=== PATIENT | female | born 1990 | race American Indian/Alaskan Native ===

== ENCOUNTER 2017-11-30 17:34 | Emergency (ER) | payer SELFPAY ==
[2017-11-30 17:50] VITALS: BP 108/49
--- NOTE | 2017-11-30 18:55 | Emergency Department Report ---
ED Female HPI - General Chief complaint: Urogenital-Female Stated complaint: ABD PAIN AND URINARY PAIN Time Seen by Provider: 11/30/17 18:48 Source: patient Mode of arrival: Ambulatory Limitations: Physical Limitation - History of Present Illness Initial comments: 27-year-old female past medical history right foot fracture currently in a cast , history of CHF, control implant left arm placed June 2016 presents with complaint of 6 days of increased urinary frequency and slight dysuria. Patient complaining of intermittent burning with urination. Also states that her last menstrual period began November 16 2017 and she has been bleeding persistently since then. Denies any chest pain shortness of breath or palpitations. Patient is awake alert and oriented 3. Denies fevers or chills or flank pain. Denies nausea or vomiting. MD Complaint: vaginal bleeding Onset/Timin -: days(s) Location: suprapubic Worsens with: urination Are you Now?: No Last Menstrual Period: 11/16/17 EDC: 08/23/18 Associated Symptoms: vaginal bleeding, dysuria - Related Data Sexually active: No Previous Rx's Medication Instructions Recorded Last Taken Type Nitrofurantoin [place]/M-Cryst 100 mg PO Q12HR #14 capsule 03/29/15 Unknown Rx [Macrobid CAP] Vit-Fe Fumar-FA [ 1 tab PO QDAY #1 bottle 03/29/15 Unknown Rx Vitamin] Ferrous Sulfate [Feosol 325 MG tab] 325 mg PO QDAY #30 tablet 11/30/17 Unknown Rx Ibuprofen [Motrin] 600 mg PO Q8H PRN #20 tablet 11/30/17 Unknown Rx Nitrofurantoin [place]/M-Cryst 100 mg PO BID #14 capsule 11/30/17 Unknown Rx [Macrobid 100 mg Capsule] Phenazopyridine [Pyridium] 200 mg PO TID #6 tab 11/30/17 Unknown Rx Allergies Allergy/AdvReac Type Severity Reaction Status Date / Time No Known Allergies Allergy Unverified 03/28/15 17:00 ED Review of Systems ROS: Stated complaint: ABD PAIN AND URINARY PAIN Other details as noted in HPI Constitutional: denies: chills, fever Eyes: denies: eye pain, eye discharge, vision change ENT: denies: ear pain, throat pain Respiratory: denies: cough, shortness of breath, wheezing Cardiovascular: denies: chest pain, palpitations Endocrine: no symptoms reported Gastrointestinal: denies: abdominal pain, nausea, diarrhea Genitourinary: frequency, abnormal menses. denies: urgency, dysuria, discharge Musculoskeletal: denies: back pain, joint swelling, arthralgia Skin: denies: rash, lesions Neurological: denies: headache, weakness, paresthesias Psychiatric: denies: anxiety, depression Hematological/Lymphatic: denies: easy bleeding, easy bruising ED Past Medical Hx - Past Medical History Previous Medical History?: Yes Hx Congestive Heart Failure: Yes Additional medical history: Miscarriage, right foot fracture - Surgical History Past Surgical History?: Yes Additional Surgical History: nexplonon in the left arm - Social History Smoking Status: Never Smoker Substance Use Type: Alcohol, Prescribed - Medications Home Medications: Home Medications Medication Instructions Recorded Confirmed Last Taken Type Nitrofurantoin [place]/M-Cryst 100 mg PO Q12HR #14 capsule 03/29/15 Unknown Rx [Macrobid CAP] Vit-Fe Fumar-FA [ 1 tab PO QDAY #1 bottle 03/29/15 Unknown Rx Vitamin] Ferrous Sulfate [Feosol 325 MG tab] 325 mg PO QDAY #30 tablet 11/30/17 Unknown Rx Ibuprofen [Motrin] 600 mg PO Q8H PRN #20 tablet 11/30/17 Unknown Rx Nitrofurantoin Monohyd/M-Cryst 100 mg PO BID #14 capsule 11/30/17 Unknown Rx [Macrobid 100 mg Capsule] Phenazopyridine [Pyridium] 200 mg PO TID #6 tab 11/30/17 Unknown Rx ED Physical Exam - General Limitations: Physical Limitation General appearance: alert, in no apparent distress - Head Head exam: Present: atraumatic, normocephalic - Eye Eye exam: Present: normal appearance, PERRL, EOMI - ENT ENT exam: Present: mucous membranes moist - Neck Neck exam: Present: normal inspection - Respiratory Respiratory exam: Present: normal lung sounds bilaterally. Absent: respiratory distress - Cardiovascular Cardiovascular Exam: Present: regular rate, normal rhythm. Absent: systolic murmur, diastolic murmur, rubs, gallop - GI/Abdominal GI/Abdominal exam: Present: soft, normal bowel sounds - Speculum exam: Present: vaginal bleeding - Extremities Exam Extremities exam: Present: normal inspection - Back Exam Back exam: Present: normal inspection - Neurological Exam Neurological exam: Present: alert, oriented X3, CN II-XII intact, normal gait - Psychiatric Psychiatric exam: Present: normal affect, normal mood - Skin Skin exam: Present: warm, dry, intact, normal color. Absent: rash ED Course Vital Signs 11/30/17 17:45 Temperature 98.3 F Pulse Rate 73 Respiratory 18 Rate Blood Pressure 108/49 O2 Sat by Pulse 97 Oximetry ED Medical Decision Making - Lab Data Result diagrams: 11/30/17 19:12 11/30/17 19:12 - Medical Decision Making A/P: Urinary tract infection, menorrhagia 1-patient is not anemic, iron supplementation, I advised her she must follow-up with [facility] to have her implant removed if she wishes 2-nitrites positive, urine culture sent. Empiric course of Macrobid. No clinical signs of pyelonephritis on exam 3-Pyridium for dysuria 4-follow-up with primary care and [facility]. Critical care attestation.: If time is entered above; I have spent that time in minutes in the direct care of this critically ill patient, excluding procedure time. ED Disposition Clinical Impression: Urinary tract infection Qualifiers: Urinary tract infection type: acute cystitis Hematuria presence: with hematuria Qualified Code(s): N30.01 - Acute cystitis with hematuria Menorrhagia Qualifiers: Menorrahagia type: with irregular cycle Qualified Code(s): N92.1 - Excessive and frequent menstruation with irregular cycle Disposition: - TO HOME OR SELFCARE Is pt being admited?: No Does the pt Need Aspirin: No Condition: Stable Instructions: Urinary Tract Infection in Women (ED), Dysuria (ED), Menorrhagia (ED) Prescriptions: Ferrous Sulfate [Feosol 325 MG tab] 325 mg PO QDAY #30 tablet Ibuprofen [Motrin] 600 mg PO Q8H PRN #20 tablet PRN Reason: Pain Nitrofurantoin Monohyd/M-Cryst [Macrobid 100 mg Capsule] 100 mg PO BID #14 capsule Phenazopyridine [Pyridium] 200 mg PO TID #6 tab Referrals: [facility] [Provider [facility]] - 3-5 Days [facility] [Provider Group] - 3-5 Days DUDLEY COOPER MD [Staff Physician] - 3-5 Days Forms: Work/School Release Form(ED) Time of Disposition: 19:50
[2017-11-30 19:23] LABS: Bacteria,Urine 4+ /HPF (Negative); Bilirubin,Urine NEG (Negative); Blood,Urine MOD (Negative); Color,Urine Yellow (Yellow); Mucus,Urine FEW /HPF; Protein,Urine <15 mg/dL mg/dL (Negative)
[2017-11-30 19:24] LABS: WBC,Urine > 182.0 /HPF (0.0-6.0)
[2017-11-30 19:25] LABS: HCG Qualitative,Urine Negative (Negative)
[2017-11-30 19:28] LABS: Basophils % (Auto) 0.3 % (0.0-1.8); Eosinophils # (Auto) 0.1 K/mm3 (0.0-0.4); Eosinophils % (Auto) 1.8 % (0.0-4.3); Hematocrit 40.7 % (30.3-42.9); Hemoglobin 13.7 gm/dl (10.1-14.3); Lymphocytes # (Auto) 1.9 K/mm3 (1.2-5.4); Lymphocytes % (Auto) 39.6 % (13.4-35.0); Mean Corpuscular HGB Conc 34 % (30-34); Mean Corpuscular Hemoglobin 32 pg (28-32); Mean Corpuscular Volume 94 fl (79-97); Monocytes # (Auto) 0.3 K/mm3 (0.0-0.8); Monocytes % (Auto) 6.9 % (0.0-7.3); Platelet Count 266 K/mm3 (140-440); Red Blood Count 4.31 M/mm3 (3.65-5.03); Red Cell Distribution Width 13.1 % (13.2-15.2)
[2017-11-30 19:39] LABS: BUN/Creatinine Ratio 18; Blood Urea Nitrogen 11 mg/dL (7-17); Calcium 8.8 mg/dL (8.4-10.2); Hemolysis Index 18
[2017-11-30] MEDS ORDERED: MACROBID PO ONE (19:46)
== END 2017-11-30 20:00 | disposition home or self-care (01) ==
LOC: ED 17:34
DX: N30.01 Acute cystitis with hematuria (principal); N92.1 Excessive and frequent menstruation with irregular cycle; I50.9 Heart failure, unspecified
CPT/HCPCS: 36415; 80048; 81001; 81025; 85025; 87076; 87086; 87186; 99284

== ENCOUNTER 2020-02-25 09:31 | Emergency (ER) | payer SELFPAY ==
[2020-02-25] MEDS ORDERED: ACETAMINOPHEN 325 MG/10.15 ML ORAL LIQD UNIT DOSE PO ONE (10:22)
[2020-02-25] MEDS ORDERED: dexAMETHasone 4 MG/ML VIAL IM ONE (10:22)
--- NOTE | 2020-02-25 10:36 | Emergency Department Report ---
ED ENT HPI - General Chief complaint: Sore Throat Stated complaint: THROAT, NECK PAIN Time Seen by Provider: 02/25/20 10:05 Source: patient Mode of arrival: Ambulatory Limitations: No Limitations - History of Present Illness Initial comments: Patient is a 29-year-old female presents emergency room with sore throat that began yesterday. She states that she has pain with swallowing. She is still able to swallow but she states that it is very uncomfortable. She has associated chills. She denies any vomiting, shortness of breath, or cough. She denies any known sick contacts. She states that she had this once in the past a few years ago and states it was strep throat. She denies any past medical history. No allergies to medications. Last menstrual cycle 02/05/2020. - Related Data Previous Rx's Medication Instructions Recorded Last Taken Type Nitrofurantoin [place]/M-Cryst 100 mg PO Q12HR #14 capsule 03/29/15 Unknown Rx [Macrobid CAP] Vit-Fe Fumar-FA [ 1 tab PO QDAY #1 bottle 03/29/15 Unknown Rx Vitamin] Ferrous Sulfate [Feosol 325 MG tab] 325 mg PO QDAY #30 tablet 11/30/17 Unknown Rx Ibuprofen [Motrin] 600 mg PO Q8H PRN #20 tablet 11/30/17 Unknown Rx Nitrofurantoin Monohyd/M-Cryst 100 mg PO BID #14 capsule 11/30/17 Unknown Rx [Macrobid 100 mg Capsule] Phenazopyridine [Pyridium] 200 mg PO TID #6 tab 11/30/17 Unknown Rx Ibuprofen [Motrin 600 MG tab] 600 mg PO Q8H PRN #14 tablet 02/25/20 Unknown Rx Penicillin Vk [Veetids TAB] 500 mg PO BID 10 Days #40 tablet 02/25/20 Unknown Rx Allergies Allergy/AdvReac Type Severity Reaction Status Date / Time No Known Allergies Allergy Unverified 03/28/15 17:00 ED Dental HPI - General Chief complaint: Sore Throat Stated complaint: THROAT, NECK PAIN Time Seen by Provider: 02/25/20 10:05 Source: patient Mode of arrival: Ambulatory Limitations: No Limitations - Related Data Previous Rx's Medication Instructions Recorded Last Taken Type Nitrofurantoin [place]/M-Cryst 100 mg PO Q12HR #14 capsule 03/29/15 Unknown Rx [Macrobid CAP] Vit-Fe Fumar-FA [ 1 tab PO QDAY #1 bottle 03/29/15 Unknown Rx Vitamin] Ferrous Sulfate [Feosol 325 MG tab] 325 mg PO QDAY #30 tablet 11/30/17 Unknown Rx Ibuprofen [Motrin] 600 mg PO Q8H PRN #20 tablet 11/30/17 Unknown Rx Nitrofurantoin Monohyd/M-Cryst 100 mg PO BID #14 capsule 11/30/17 Unknown Rx [Macrobid 100 mg Capsule] Phenazopyridine [Pyridium] 200 mg PO TID #6 tab 11/30/17 Unknown Rx Ibuprofen [Motrin 600 MG tab] 600 mg PO Q8H PRN #14 tablet 02/25/20 Unknown Rx Penicillin Vk [Veetids TAB] 500 mg PO BID 10 Days #40 tablet 02/25/20 Unknown Rx Allergies Allergy/AdvReac Type Severity Reaction Status Date / Time No Known Allergies Allergy Unverified 03/28/15 17:00 ED Review of Systems ROS: Stated complaint: THROAT, NECK PAIN Other details as noted in HPI Comment: All other systems reviewed and negative ED Past Medical Hx - Past Medical History Previous Medical History?: Yes Hx Congestive Heart Failure: Yes Additional medical history: Miscarriage, right foot fracture - Surgical History Past Surgical History?: Yes Additional Surgical History: nexplonon in the left arm - Social History Smoking Status: Never Smoker Substance Use Type: Alcohol - Medications Home Medications: Home Medications Medication Instructions Recorded Confirmed Last Taken Type Nitrofurantoin [place]/M-Cryst 100 mg PO Q12HR #14 capsule 03/29/15 Unknown Rx [Macrobid CAP] Vit-Fe Fumar-FA [ 1 tab PO QDAY #1 bottle 03/29/15 Unknown Rx Vitamin] Ferrous Sulfate [Feosol 325 MG tab] 325 mg PO QDAY #30 tablet 11/30/17 Unknown Rx Ibuprofen [Motrin] 600 mg PO Q8H PRN #20 tablet 11/30/17 Unknown Rx Nitrofurantoin Monohyd/M-Cryst 100 mg PO BID #14 capsule 11/30/17 Unknown Rx [Macrobid 100 mg Capsule] Phenazopyridine [Pyridium] 200 mg PO TID #6 tab 11/30/17 Unknown Rx Ibuprofen [Motrin 600 MG tab] 600 mg PO Q8H PRN #14 tablet 02/25/20 Unknown Rx Penicillin Vk [Veetids TAB] 500 mg PO BID 10 Days #40 tablet 02/25/20 Unknown Rx ED Physical Exam - General Limitations: No Limitations General appearance: alert, in no apparent distress - Head Head exam: Present: atraumatic, normocephalic - Eye Eye exam: Present: normal appearance - ENT ENT exam: Present: mucous membranes moist, TM's normal bilaterally, normal external ear exam, other (oropharynx is erythematous with exudates, no tonsillar hypertrophy, uvula is midline, no uvular edema or deviation, no trismus, no tongue elevation, no muffled voice) - Neck Neck exam: Present: lymphadenopathy (small right anterior cervical LAD) - Respiratory Respiratory exam: Present: normal lung sounds bilaterally. Absent: respiratory distress, wheezes, rales, rhonchi, stridor, chest wall tenderness, accessory muscle use, decreased breath sounds, prolonged expiratory - Cardiovascular Cardiovascular Exam: Present: normal rhythm, tachycardia, normal heart sounds. Absent: systolic murmur, diastolic murmur, rubs, gallop - Neurological Exam Neurological exam: Present: alert, oriented X3 - Psychiatric Psychiatric exam: Present: normal affect, normal mood - Skin Skin exam: Present: warm, dry, intact ED Course Vital Signs 02/25/20 02/25/20 09:37 11:12 Temperature 99.8 F H 101.5 F H Pulse Rate 109 H 90 Respiratory 18 18 Rate Blood Pressure 126/59 Blood Pressure 128/49 [Right] O2 Sat by Pulse 99 98 Oximetry ED Medical Decision Making - Medical Decision Making Patient is a 29-year-old female presents emergency room with sore throat that began yesterday. She states that she has pain with swallowing. She is still able to swallow but she states that it is very uncomfortable. She has associated chills. She denies any vomiting, shortness of breath, or cough. She denies any known sick contacts. She states that she had this once in the past a few years ago and states it was strep throat. She denies any past medical history. No allergies to medications. Last menstrual cycle 02/05/2020. Initial vitals with low-grade fever and elevated heart rate. on exam: oropharynx is erythematous with exudates, no tonsillar hypertrophy, uvula is midline, no uvular edema or deviation, no trismus, no tongue elevation, no muffled voice, small right anterior cervical LAD. Examination appears consistent with pharyngitis. Patient given liquid Tylenol and dexamethasone while in the emergency department and symptoms improved. HR improved after medication administration, continues to have fever, pt given ibuprofen prior to discharge. She is able to tolerate her secretions and PO intake . No signs of significant tonsillar abscess at this time. discussed strict return precautions with pt. Patient will be given prescription for penicillin Vk and ibuprofen. Advised patient to please take medication as prescribed. Please take antibiotics to completion. Increase your water intake over the next several days. May do warm salt water gargles 3-5 times a day. May use [id number] throat spray or throat lozenges. Follow-up with your primary care doctor for reexamination. Return to the emergency room for any new or worsening symptoms. - Differential Diagnosis pharyngitis, tonsillitis, mononucleosis, viral syndrome, abscess Critical care attestation.: If time is entered above; I have spent that time in minutes in the direct care of this critically ill patient, excluding procedure time. ED Disposition Clinical Impression: Pharyngitis Qualifiers: Pharyngitis/tonsillitis etiology: unspecified etiology Qualified Code(s): J02.9 - Acute pharyngitis, unspecified Disposition: DC- TO HOME OR SELFCARE Is pt being admited?: No Does the pt Need Aspirin: No Condition: Stable Instructions: Pharyngitis (ED) Additional Instructions: please take medication as prescribed. Please take antibiotics to completion. Increase your water intake over the next several days. May do warm salt water gargles 3-5 times a day. May use uvba-hlz-wfkehry throat spray or throat lozenges. Follow-up with your primary care doctor for reexamination. Return to the emergency room for any new or worsening symptoms. Prescriptions: Ibuprofen [Motrin 600 MG tab] 600 mg PO Q8H PRN #14 tablet PRN Reason: Pain Penicillin Vk [Veetids TAB] 500 mg PO BID 10 Days #40 tablet Referrals: ZA WRIGHT MD [Primary Care Provider] - 2-3 Days CALE AMADO MD [Staff Physician] - 2-3 Days [facility] [Provider Group] - 2-3 Days Time of Disposition: 10:59 Print Language: MALTESE
[2020-02-25] MEDS ORDERED: IBUPROFEN ORAL LIQD 100 MG/5 ML ORAL.LIQD PO ONE (11:07)
[2020-02-25 11:13] VITALS: BP 128/49
== END 2020-02-25 11:13 | disposition home or self-care (01) ==
LOC: ED 09:31
DX: J02.9 Acute pharyngitis, unspecified (principal); I50.9 Heart failure, unspecified; Z79.899 Other long term (current) drug therapy; Z98.890 Other specified postprocedural states
CPT/HCPCS: 96372; 99282; J1100

== ENCOUNTER 2021-01-05 15:16 | Emergency (ER) | payer SELFPAY ==
[2021-01-05 16:22] VITALS: BP 109/54
== END 2021-01-06 04:54 ==
LOC: ED 15:16
DX: S61.012A Laceration without foreign body of left thumb without damage to nail, initial encounter (principal); Z53.21 Procedure and treatment not carried out due to patient leaving prior to being seen by health care provider; W33.01XA Accidental discharge of shotgun, initial encounter; Y93.89 Activity, other specified; Y92.89 Other specified places as the place of occurrence of the external cause; Y99.8 Other external cause status

== ENCOUNTER 2021-10-14 11:22 | Emergency (ER) | payer BC ==
[2021-10-14 12:48] VITALS: BP 127/65
--- NOTE | 2021-10-14 16:40 | Emergency Department Report ---
- General Chief complaint: Skin Rash Stated complaint: RASH/LEFT SIDE PAIN Time Seen by Provider: 10/14/21 15:52 Source: patient Mode of arrival: Ambulatory Limitations: No Limitations - History of Present Illness Initial comments: 31-year-old black female with no past medical history presents to the emergency department for evaluation of rash to left side. She states that about 2 weeks ago she started to have some itching to her left flank area and then 2 days ago she started to have pain to the area and small bumps. She states that bumps and pain have been getting increasingly worse over the last 2 days. She denies fever and myalgias. MD complaint: rash -: Gradual, days(s) (To) Location: back (Left flank area) Severity: moderate Severity scale (0 -10): 4 Quality: burning, aching Consistency: constant Associated symptoms: denies other symptoms Treatments Prior to Arrival: none - Related Data Previous Rx's Medication Instructions Recorded Last Taken Type Nitrofurantoin [place]/M-Cryst 100 mg PO Q12HR #14 capsule 03/29/15 Unknown Rx [Macrobid CAP] Vit-Fe Fumar-FA [ 1 tab PO QDAY #1 bottle 03/29/15 Unknown Rx Vitamin] Ferrous Sulfate [Feosol 325 MG tab] 325 mg PO QDAY #30 tablet 11/30/17 Unknown Rx Ibuprofen [Motrin] 600 mg PO Q8H PRN #20 tablet 11/30/17 Unknown Rx Nitrofurantoin Monohyd/M-Cryst 100 mg PO BID #14 capsule 11/30/17 Unknown Rx [Macrobid 100 mg Capsule] Phenazopyridine [Pyridium] 200 mg PO TID #6 tab 11/30/17 Unknown Rx Ibuprofen [Motrin 600 MG tab] 600 mg PO Q8H PRN #14 tablet 02/25/20 Unknown Rx Penicillin Vk [Veetids TAB] 500 mg PO BID 10 Days #40 tablet 02/25/20 Unknown Rx Valacyclovir HCl [Valtrex] 1,000 mg PO TID #21 tab 10/14/21 Unknown Rx Allergies Allergy/AdvReac Type Severity Reaction Status Date / Time No Known Allergies Allergy Verified 01/05/21 16:22 Abscess Boil HPI - HPI Chief Complaint: Skin Rash Stated Complaint: RASH/LEFT SIDE PAIN Time Seen by Provider: 10/14/21 15:52 Home Medications: Previous Rx's Medication Instructions Recorded Last Taken Type Nitrofurantoin [place]/M-Cryst 100 mg PO Q12HR #14 capsule 03/29/15 Unknown Rx [Macrobid CAP] Vit-Fe Fumar-FA [ 1 tab PO QDAY #1 bottle 03/29/15 Unknown Rx Vitamin] Ferrous Sulfate [Feosol 325 MG tab] 325 mg PO QDAY #30 tablet 11/30/17 Unknown Rx Ibuprofen [Motrin] 600 mg PO Q8H PRN #20 tablet 11/30/17 Unknown Rx Nitrofurantoin Monohyd/M-Cryst 100 mg PO BID #14 capsule 11/30/17 Unknown Rx [Macrobid 100 mg Capsule] Phenazopyridine [Pyridium] 200 mg PO TID #6 tab 11/30/17 Unknown Rx Ibuprofen [Motrin 600 MG tab] 600 mg PO Q8H PRN #14 tablet 02/25/20 Unknown Rx Penicillin Vk [Veetids TAB] 500 mg PO BID 10 Days #40 tablet 02/25/20 Unknown Rx Valacyclovir HCl [Valtrex] 1,000 mg PO TID #21 tab 10/14/21 Unknown Rx Allergies/Adverse Reactions: Allergies Allergy/AdvReac Type Severity Reaction Status Date / Time No Known Allergies Allergy Verified 01/05/21 16:22 ED Review of Systems ROS: Stated complaint: RASH/LEFT SIDE PAIN Other details as noted in HPI Comment: All other systems reviewed and negative Constitutional: denies: chills, fever Respiratory: denies: shortness of breath Cardiovascular: denies: chest pain, palpitations Gastrointestinal: denies: abdominal pain, nausea, vomiting Skin: rash Neurological: denies: headache ED Past Medical Hx - Past Medical History Hx Congestive Heart Failure: Yes Additional medical history: Miscarriage, right foot fracture - Surgical History Past Surgical History?: Yes Additional Surgical History: nexplonon in the left arm - Social History Smoking Status: Never Smoker Substance Use Type: Alcohol - Medications Home Medications: Home Medications Medication Instructions Recorded Confirmed Last Taken Type Nitrofurantoin [place]/M-Cryst 100 mg PO Q12HR #14 capsule 03/29/15 Unknown Rx [Macrobid CAP] Vit-Fe Fumar-FA [ 1 tab PO QDAY #1 bottle 03/29/15 Unknown Rx Vitamin] Ferrous Sulfate [Feosol 325 MG tab] 325 mg PO QDAY #30 tablet 11/30/17 Unknown Rx Ibuprofen [Motrin] 600 mg PO Q8H PRN #20 tablet 11/30/17 Unknown Rx Nitrofurantoin [place]/M-Cryst 100 mg PO BID #14 capsule 11/30/17 Unknown Rx [Macrobid 100 mg Capsule] Phenazopyridine [Pyridium] 200 mg PO TID #6 tab 11/30/17 Unknown Rx Ibuprofen [Motrin 600 MG tab] 600 mg PO Q8H PRN #14 tablet 02/25/20 Unknown Rx Penicillin Vk [Veetids TAB] 500 mg PO BID 10 Days #40 tablet 02/25/20 Unknown Rx Valacyclovir HCl [Valtrex] 1,000 mg PO TID #21 tab 10/14/21 Unknown Rx ED Physical Exam - General Limitations: No Limitations General appearance: alert, in no apparent distress - Head Head exam: Present: atraumatic, normocephalic - Eye Eye exam: Present: normal appearance. Absent: conjunctival injection - Neck Neck exam: Present: normal inspection - Respiratory Respiratory exam: Present: normal lung sounds bilaterally. Absent: respiratory distress, chest wall tenderness - Cardiovascular Cardiovascular Exam: Present: regular rate, normal heart sounds - GI/Abdominal GI/Abdominal exam: Present: soft, normal bowel sounds. Absent: distended, tenderness - Extremities Exam Extremities exam: Present: normal inspection, normal capillary refill. Absent: pedal edema, joint swelling, calf tenderness - Back Exam Back exam: Present: tenderness - Expanded Back Exam Expanded 1 - Erythematous, raised vesicular rash noted to area. Rash painful to touch, and pain noted to the area going up towards armpit but no rash noted to area. - Neurological Exam Neurological exam: Present: alert, oriented X3, normal gait - Psychiatric Psychiatric exam: Present: normal affect, normal mood - Skin Skin exam: Present: warm, dry, intact, normal color, erythema, vesicles. Absent: rash ED Course Vital Signs 10/14/21 10/14/21 12:39 16:58 Temperature 98.1 F 98.1 F Pulse Rate 69 69 Respiratory 16 16 Rate Blood Pressure 127/65 127/65 [Left] O2 Sat by Pulse 100 99 Oximetry ED Medical Decision Making - Medical Decision Making 31-year-old black female with no past medical history presents to the emergency department for evaluation of rash to left side. She states that about 2 weeks ago she started to have some itching to her left flank area and then 2 days ago she started to have pain to the area and small bumps. She states that bumps and pain have been getting increasingly worse over the last 2 days. She denies fever and myalgias. Complaint and exam consistent with shingles to left flank area. Patient will be treated with 7-day course of Valtrex 3 times a day 100 mg. She is advised to take medication as prescribed and follow-up with dermatology for further evaluation and management. She verbalizes understanding of and agreement with plan of care. Critical care attestation.: If time is entered above; I have spent that time in minutes in the direct care of this critically ill patient, excluding procedure time. ED Disposition Clinical Impression: Shingles Qualifiers: Herpes zoster complications: without complications Qualified Code(s): B02.9 - Zoster without complications Disposition: 01 HOME / SELF CARE / HOMELESS Is pt being admited?: No Does the pt Need Aspirin: No Condition: Stable Instructions: Shingles, Pget-sa-Smyz Additional Instructions: Take medication as prescribed. Follow-up with dermatology for further evaluation and management. Return to the emergency department as needed. Prescriptions: Valacyclovir HCl [Valtrex] 1,000 mg PO TID #21 tab Referrals: EMMANUEL KIRKLAND MD [Referring] - 3-5 Days Forms: Work/School Release Form(ED) Time of Disposition: 16:39
== END 2021-10-14 16:58 | disposition home or self-care (01) ==
LOC: ED 11:22
DX: B02.9 Zoster without complications (principal); I50.9 Heart failure, unspecified; Z72.89 Other problems related to lifestyle; Z79.899 Other long term (current) drug therapy
CPT/HCPCS: 99282